=== PATIENT | male | born 1955 | race Caucasian/White ===

== ENCOUNTER → 2019-08-27 07:40 | Outpatient (CLI) | payer BC, SELFPAY ==
--- NOTE | 2019-08-27 07:47 | US_ITS ---
PROCEDURE: US ABD. AORTA SCREENING CLINICAL INDICATION: ABD BRUIT,FAMILY H/O AAA COMPARISON: No exams were available for comparison FINDINGS: The proximal abdominal aorta measures 19 millimeters x 19 millimeters. The mid to distal abdominal aorta measures 19 millimeters x 16 millimeters. The proximal right common iliac artery measures 11 millimeters and the proximal left common iliac artery measures 11 millimeters. There is no evidence for an aneurysm or abnormal fluid collections. IMPRESSION: Negative Dictated by: Dayday Rainey 08/27/2019 15:45 Electronically signed by Dayday Rainey in [place] 08/27/2019 15:45
== END ==
PROVIDERS: PCP Internal Medicine Adolescent Medicine; Visit Provider Internal Medicine Adolescent Medicine
DX: R09.89 Other specified symptoms and signs involving the circulatory and respiratory systems (principal); Z82.49 Family history of ischemic heart disease and other diseases of the circulatory system
CPT/HCPCS: 76705

== ENCOUNTER → 2019-10-22 07:23 | Outpatient (CLI) | payer BC, SELFPAY ==
[2019-10-22 09:31] LABS: Coronavirus 19 IgG Antibody Negative (Negative); Coronavirus 19 IgM Antibody Negative (Negative)
== END ==
PROVIDERS: Visit Provider Surgery
DX: Z01.818 Encounter for other preprocedural examination (principal); Z12.11 Encounter for screening for malignant neoplasm of colon
CPT/HCPCS: 36415; 86328

== ENCOUNTER 2019-10-23 06:32 | Day surgery (SDC) | payer BC, SELFPAY ==
[2019-10-19 14:33] VITALS: BMI 24.4
[2019-10-23 07:05] VITALS: BP 135/83; PULSE 66; RESP 18; TEMP 36.5; O2SAT 97
--- NOTE | 2019-10-23 07:25 | HMH.HP ---
*Admission Date: 10/23/19 *Chief complaint: Colonoscopy *History of present illness: Patient presents for follow-up colonoscopy due to previous history of polyps. He is under the care of Dr. Head. He had a previous colonoscopy greater than 15 years ago in [place] which reportedly revealed polyps. I did colonoscopy January 2016 due to work-up for possible kidney donation. At that time he was found to have 4 tubular adenomas. I had recommended follow-up colonoscopy in 3 years. He is without complaints. [facility] [place] History I have reviewed the patient's past medical history: Yes Medical History: Denies:: Cancer, Diabetes Mellitus Type 1, Diabetes Mellitus Type 2, Internal Pacemaker, MRSA, Seizures *Have you ever received a pneumonia vaccine?: No *Have you received a flu vaccine this season?: No Laterality Cases: Bilateral: Cataract Other Surgeries: Yes: Colonoscopy. No: Pacemaker Amputation: No Fractures: No - *Social History Last grade of school completed: High school graduate Smoking Status: Current every day smoker Tobacco Type: cigarettes # Packs/Day (cigarettes): 1 Alcohol Intake: current Alcohol Intake Frequency:: a few times a week *Occupational Status:: employed Housing: house Household Members: spouse *Travel in the last 8 weeks: Inside the [facility] Family Hx:: No significant family history Review of Systems - Review of Systems Review of systems:: pertinent systems reviewed and negative unless documented below Meds Home Medications Medication Instructions Recorded Confirmed Type sucralfate 1 gram tablet 1 g PO BID 09/21/19 10/23/19 History Allergies Allergy/AdvReac Type Severity Reaction Status Date / Time No Known Allergies Allergy Verified 10/23/19 07:03 Exam Vital signs and Labs for Last 24 Hours: Temp Pulse Resp BP Pulse Ox 97.7 F 66 18 135/83 97 10/23/19 07:05 10/23/19 07:05 10/23/19 07:05 10/23/19 07:05 10/23/19 07:05 I & O for Last 24 hours: Intake & Output 10/20/19 10/21/19 10/22/19 10/23/19 11:59 11:59 11:59 11:59 Weight 180 lb - *Routine HEENT Exam Head: Present: normocephalic Eye: Present: EOMI, PERRL ENT: Present: mucous membranes moist - *Routine Neck Exam Present: supple. Absent: lymphadenopathy - *Routine Respiratory Exam Present: CTA bilaterally - *Routine Cardiovascular Exam Present: RRR - *Routine Abdominal Exam Present: soft, normoactive bowel sounds. Absent: tenderness - *Routine Extremities Exam Absent: cyanosis, clubbing, edema - *Routine Skin Exam Present: warm. Absent: rash - *Routine Neurological Exam Present: alert, oriented X3 Assessment and Plan - Assessment and plan all Dx Assessment and Plan for all problems:: Colonoscopy
[2019-10-23 07:33] VITALS: O2SAT 97
--- NOTE | 2019-10-23 07:46 | P.PN_ITS ---
[facility] Anesthesia Checklist - Structural Data Admitted From: Home Planned Operative Procedure/s: colonoscopy Consent for Planned Operative Procedure(s) Verified: Yes - Airway Assessment C-Spine Mobility Assessed: Yes TMJ Mobility Assessed: Yes Dentition: Good Dentition - Neurological Assessment Level of Consciousness: Awake, Alert, Appropriate - Anesthesia Plan Anesthesia Risk discussed: Yes Anesthesia Plan: Verified ASA Class: II Anesthesia Type: MAC [facility] History I have reviewed the patient's past medical history: Yes Medical History: Denies:: Cancer, Diabetes Mellitus Type 1, Diabetes Mellitus Type 2, Internal Pacemaker, MRSA, Seizures *Have you ever received a pneumonia vaccine?: No *Have you received a flu vaccine this season?: No Anesthesia experience/problems:: none Laterality Cases: Bilateral: Cataract Other Surgeries: Yes: Colonoscopy. No: Pacemaker Amputation: No Fractures: No - *Social History Last grade of school completed: High school graduate Smoking Status: Current every day smoker Tobacco Type: cigarettes # Packs/Day (cigarettes): 1 Alcohol Intake: current Alcohol Intake Frequency:: a few times a week Substance Use Type: denies use *Occupational Status:: employed Housing: house Household Members: spouse *Travel in the last 8 weeks: Inside the [facility] Family Hx:: No significant family history
--- NOTE | 2019-10-23 08:19 | HMH.SCOPE ---
- Procedure: Date: 10/23/19 Procedure Performed:: Total colonoscopy to terminal ileum with polypectomy by snare and biopsy forceps Indications:: Patient presents for follow-up colonoscopy due to previous history of polyps. He is under the care of Dr. Head. He had a previous colonoscopy greater than 15 years ago in [place] which reportedly revealed polyps. I did colonoscopy January 2016 due to work-up for possible kidney donation. At that time he was found to have 4 tubular adenomas. I had recommended follow-up colonoscopy in 3 years. He is without complaints. Performing Provider:: Jesus Melgar MD Referring Provider:: Epifanio Head MD Sedation:: Propofol Procedure:: Patient was taken to endoscopy procedure room. He was positioned in a lateral decubitus position. Adequate intravenous sedation was achieved with anesthesia titration of propofol. Digital examination was performed which revealed minor internal hemorrhoid. Variable stiffness Olympus colonoscope was inserted via the anus and advanced to the cecum without difficulty. Colonic preparation was good. Ileocecal valve and appendiceal orifice were clearly identified. Colonoscope was withdrawn through the colon with careful surveillance. There were several tiny diminutive polyps removed with a variety of technique. Please see findings below. He had some rare scattered diverticuli. Retroflexion revealed minimal internal hemorrhoids. Colonoscope was withdrawn. Findings:: Periappendiceal polyp removed with snare and biopsy forceps Ascending colon polyp removed with biopsy forceps Proximal transverse colon polyp removed with cold snare Distal transverse polyp x2 removed with biopsy forceps Distal sigmoid polyp removed with biopsy forceps Rectosigmoid polyp removed with cold snare Hyperplastic appearing rectal polyp x4 removed with biopsy forceps Total of 11 polyps were removed, majority appeared hyperplastic Rare diverticuli Recommendations:: Pending pathology repeat colonoscopy 3 to 5 years Complications:: None immediately apparent Estimated blood obtained (mL): 3
[2019-10-23 08:25] VITALS: BP 97/52; PULSE 66; RESP 18; TEMP 36.1; O2SAT 96
[2019-10-23 08:35] VITALS: BP 80/60; PULSE 73; RESP 18; O2SAT 97
[2019-10-23 08:43] VITALS: BP 111/78; PULSE 67; RESP 18; O2SAT 96
[2019-10-23 08:52] VITALS: BP 109/89; PULSE 59; RESP 18; O2SAT 98
== END 2019-10-23 08:55 | disposition home or self-care (01) ==
LOC: OUTP 06:34
PROVIDERS: PCP Internal Medicine Adolescent Medicine; Visit Provider Surgery
PROC: 0DJD8ZZ Inspection of Lower Intestinal Tract, Via Natural or Artificial Opening Endoscopic (ICD-10-PCS; CPT 45385; principal; 2019-10-23 07:30)
DX: Z12.11 Encounter for screening for malignant neoplasm of colon (principal); K57.30 Diverticulosis of large intestine without perforation or abscess without bleeding; K63.5 Polyp of colon; K64.9 Unspecified hemorrhoids; Z86.010 Personal history of colon polyps; Z72.0 Tobacco use; Z79.899 Other long term (current) drug therapy
CPT/HCPCS: 45385; 45380; J2704

== ENCOUNTER → 2020-09-04 14:55 | Outpatient (CLI) | payer BC, SELFPAY ==
--- NOTE | 2020-09-04 15:00 | XR_ITS ---
PROCEDURE: XR SHOULDER LT MIN 2V CLINICAL INDICATION: ROTATOR CUFF SYNDROME OF LT SHOULDER COMPARISON: No exams were available for comparison FINDINGS: The acromioclavicular joint has an unremarkable appearance. No significant subacromial stenosis. Minimal osteoarthritic changes are present involving the glenohumeral joint Other findings:None. IMPRESSION: Minimal osteoarthritis of the glenohumeral joint Dictated by: Carmelo Hurst MD 09/04/2020 15:33 Carmelo Hurst MD in [facility] 09/04/2020 15:33
== END ==
PROVIDERS: PCP Internal Medicine Adolescent Medicine; Visit Provider Internal Medicine Adolescent Medicine
DX: M75.102 Unspecified rotator cuff tear or rupture of left shoulder, not specified as traumatic (principal)
CPT/HCPCS: 73030

== ENCOUNTER → 2022-09-30 13:51 | Outpatient (CLI) | payer MEDICARE, SELFPAY ==
--- NOTE | 2022-09-30 13:55 | CT_ITS ---
FINAL REPORT CLINICAL HISTORY: H/O TOBACCO USE, CURRENT SMOKER 1PPD X52 YEARS FINDINGS: CT CHEST LOW DOSE SCREENING HISTORY: Screening exam for lung cancer. Current smoker, 30 pack year smoking history DOSE: CTDIvol: 2.90 mGy, DLP: 111.77 mGy*cm COMPARISON: None . TECHNIQUE: Axial CT without IV contrast administration using low dose protocol FINDINGS: No acute lung disease is present . No pulmonary lesions are seen suspicious for neoplasm. No pleural or pericardial effusion is seen . No adenopathy or mass lesion is present . IMPRESSION: 1. No evidence of lung cancer LUNG RADS CATEGORY 1 RECOMMENDATION: 12 month LDCT follow up Reviewed, Interpreted and Dictated by Tyson Perez MD Transcribed by Tiana Omalley Authenticated and [facility]
== END ==
PROVIDERS: PCP Internal Medicine Adolescent Medicine; Visit Provider Internal Medicine Adolescent Medicine
DX: Z87.891 Personal history of nicotine dependence (principal); Z12.2 Encounter for screening for malignant neoplasm of respiratory organs
CPT/HCPCS: 71271